=== PATIENT | male | born 1995 | race Caucasian/White ===

== ENCOUNTER 2017-02-06 10:04 | Emergency (ER) | payer SELFPAY ==
[~2017-02-06] VITALS: Ht 167.6 cm; Wt 62.6 kg
[2017-02-06] MEDS ORDERED: fentaNYL INJECTION 100 MCG/2 ML AMP IVP ONE (10:30)
[2017-02-06] MEDS ORDERED: BUSP5TAB59 (10:41)
[2017-02-06] MEDS ORDERED: BUSP10TA95 (10:41)
[2017-02-06] MEDS ORDERED: RISP1TAB94 (10:41)
--- NOTE | 2017-02-06 11:19 | Diagnostic Imaging Report ---
INDICATION: Injury to left hand AP, oblique, and lateral views of the left hand are obtained. Thre is an acute fracture of the first distal phalanx, extending to the interphalangeal joint. There is no significant displacement. There is no radiopaque foreign body. IMPRESSION: Vertically oriented acute fracture of first distal phalanx with extension to the interphalangeal joint. No radiopaque foreign body. Dictated by: Dictated on workstation # [id number]
--- NOTE | 2017-02-06 11:22 | ED Upper Extremity ---
General Chief Complaint: Laceration Stated Complaint: L THUMB LAC Nursing Triage Note: ARRIVED VIA POV WITH LAC TO LEFT THUMB. PT STATES HE WAS USING A POWER SAW AND IT SLIPPED. WORKS FOR [employer] IN [place]. Nursing Sepsis Screen: No Definite Risk History of Present Illness Time seen by provider: 11:05 Initial Comments Patient was using a table saw work today, it slipped and injured the volar surface of his left thumb. He is right-hand dominant. Denies any previous injuries to his left hand. Patient reports eating biscuits and gravy at 0700 and drinking pop prior to arrival Onset: just prior to arrival Pain/Injury Location: left thumb Method of Injury: incised Modifying Factors: Improves With Immobilization, Improves With Rest Allergies and Home Medications Allergies Coded Allergies: No Known Drug Allergies (Unverified , 02/06/17) Home Medications Buspirone HCl 10 Mg Tablet, #60 (Reported) Buspirone HCl 5 Mg Tablet, #60 (Reported) Cephalexin 500 Mg Capsule, 500 MG PO Q6H, #28 Ref 0 Prescribed by: ROBERTO GARCIA on 02/06/17 1233 Hydrocodone/Acetaminophen 1 Each Tablet, 1 EACH PO Q4H PRN for PAIN-MODERATE, # 20 Ref 0 Prescribed by: ROBERTO GARCIA on 02/06/17 1233 Risperidone 1 Mg Tablet, #60 (Reported) Constitutional: see HPI, other (history of schizophrenia) EENTM: no symptoms reported, see HPI Respiratory: no symptoms reported, see HPI Cardiovascular: no symptoms reported, see HPI Gastrointestinal: no symptoms reported, see HPI Genitourinary: no symptoms reported, see HPI Musculoskeletal: see HPI, joint pain (left thumb IP joint) Skin: see HPI, other (laceration left thumb) Psychiatric/Neurological: See HPI, Other (schizophrenia well controlled with medication) All Other Systems Reviewed Negative Unless Noted: Yes Past Jivbpwa-Whawyj-Cxtmfg Hx Patient Social History Alcohol Use: Denies Use Recreational Drug Use: Yes (marijuana approximately 2 weeks ago) Smoking Status: Never a Smoker Recent Foreign Travel: No Contact w/Someone Who Travel: No Recent Infectious Disease Expo: No Recent Hopitalizations: No Immunizations Up To Date Tetanus Booster (TDap): More than 5yrs Psychosocial Hx Psychiatric Problems: Yes Behavioral Health Disorders: Schizophrenia Reviewed Nursing Assessment Reviewed/Agree w Nursing PMH: Yes Physical Exam Vital Signs Vital Sign - Last 12Hours 02/06/17 10:10 Temp 98.0 Pulse 57 Resp 16 B/P (MAP) 105/68 Pulse Ox 98 O2 Delivery Room Air Capillary Refill : Less Than 3 Seconds General Appearance: WD/WN, no apparent distress HEENT: PERRL/EOMI, normal ENT inspection, TMs normal, pharynx normal Neck: non-tender, full range of motion, supple Cardiovascular: normal peripheral pulses, regular rate, rhythm Respiratory: chest non-tender, lungs clear, normal breath sounds, no respiratory distress, no accessory muscle use Gastrointestinal: normal bowel sounds, non tender, soft, no organomegaly, no pulsatile mass Wrist: Yes normal inspection, Yes non-tender, Yes no evidence of injury, Yes normal ROM Hand: Left, bone tenderness, laceration, limited ROM, soft tissue tenderness Neurologic/Psychiatric: no motor/sensory deficits, alert, normal mood/affect, oriented x 3 Skin: normal color, warm/dry Comments 5.5 cm laceration to left thumb on volar and ulnar side, deep with exposure of muscle and bones/fracture. Left thumb full extension and abduction with resisted power V/V. full flexion at MCP, unable to actively flex at IP joint, when passively flexed, unable to maintain the position. Cap refull < 2 sec, sensation intact left thumb. Laceration Repair : Wound Location: Upper Extremities (left thumb) Wound Length (cm): 5.5 Wound's Depth, Shape: into muscle, irregular, bone, sub Q Wound Explored: no foreign body removed Irrigated w/ Saline (ccs): 500 Betadine Prep?: Yes Anesthesia: 1% Lidocaine (10 mL's for digital block left thumb) Volume Anesthetic (ccs): 10 Wound Debrided: minimal Suture: Ethlion Suture Size: 4-0 Number of Sutures: 4 Sterile Dressing Applied?: Yes Progress Patient tolerated procedure well. Adaptic and nonadhesive dressing applied to left thumb with bulky 4 x 4s secured with Antony wrap. Progress/Results/Core Measures Results/Orders My Orders Orders - ROBERTO GARCIA [facility] [employer] Fentanyl Injection (Sublimaze Injection (02/06/17 11:40) Dipht,Pertuss(Acell),Tet Adult (Boostrix (02/06/17 11:44) Lidocaine 1% Injection (Xylocaine 1% Inj (02/06/17 11:52) Ceftriaxone Injection (Rocephin Injectio (02/06/17 12:30) Lidocaine 1% Injection (Xylocaine 1% Inj (02/06/17 12:30) Medications Given in ED Current Medications Medications Dose Ordered Sig/Brea Route Start Time Stop Time Status Last Admin Dose Admin Ceftriaxone Sodium 1,000 mg ONCE ONCE IM 02/06/17 12:30 02/06/17 12:31 DC 02/06/17 12:37 1,000 MG Fentanyl Citrate 50 mcg ONCE ONCE IVP 02/06/17 10:30 02/06/17 10:32 DC 02/06/17 10:37 50 MCG Lidocaine HCl 2.1 ml ONCE ONCE INJ 02/06/17 12:30 02/06/17 12:31 DC 02/06/17 12:20 2.1 ML Vital Signs/I&O Vital Sign - Last 12Hours 02/06/17 02/06/17 10:10 12:59 Temp 98.0 Pulse 57 78 Resp 16 16 B/P (MAP) 105/68 Pulse Ox 98 98 O2 Delivery Room Air Blood Pressure Mean: 80 Progress Note : Time: 11:05 Progress Note Initial evaluation completed, left thumb has been soaked in Hibiclens and sterile saline. He reports pain is controlled present time. X-rays were reviewed which show a compound, nondisplaced distal phalanx fracture. Will give a tetanus vaccine. Spoke with patient in detail about this injury as there is obvious damage to the tendon and bone, there are risks associated with his tobacco history and open fracture. Will call for orthopedic consult. 1130 patient reporting additional pain at this time, fentanyl 50 g. [address] spoke by phone with Dr. Rocha about the patient injury and x-ray. He recommended loose closure and follow-up with or therefore states to see Dr. Haynes for definitive treatment. 1200 discharge instructions discussed with the patient at length with the importance of following up with Dr. Rocha's office for referral to Dr. Haynes. He verbalized importance of this. Diagnostic Imaging Diagonstic Imaging: Xray Plain Films/CT/US/NM/MRI: hand (left) Comments NAME: ROLAND HOWE MED REC#: [id number] PT STATUS: REG ER : 1995 PHYSICIAN: KIMO SWEENEY MD ADMIT DATE: 02/06/17/ER Draft Date of Exam:02/06/17 HAND, LEFT, 3 VIEWS INDICATION: Injury to left hand AP, oblique, and lateral views of the left hand are obtained. Thre is an acute fracture of the first distal phalanx, extending to the interphalangeal joint. There is no significant displacement. There is no radiopaque foreign body. IMPRESSION: Vertically oriented acute fracture of first distal phalanx with extension to the interphalangeal joint. No radiopaque foreign body. Dictated on workstation # [id number] Dict: 02/06/17 1108 Trans: 02/06/17 1119 RHONDA [id number] Interpreted by: JULES HILLS MD Electronically signed by: Reviewed: Reviewed by Me, Reviewed/Discussed (with Dr. Rocha) Departure Impression Impression: Primary Impression: Fracture of thumb, left, open Qualified Codes: S62.525B - Nondisplaced fracture of distal phalanx of left thumb, initial encounter for open fracture Additional Impression: Laceration of left thumb Qualified Codes: S61.012A - Laceration without foreign body of left thumb without damage to nail, initial encounter Disposition: 01 HOME, SELF-CARE Condition: Improved Departure-Patient Inst. Decision time for Depature: 11:50 Referrals: NO,LOCAL PHYSICIAN (PCP/Family) Primary Care Physician Patient Instructions: Finger Fracture (DC), Laceration Repair With Stitches (DC ) Add. Discharge Instructions: Call Dr. Olson's office, for follow up with Dr. Haynes [phone] Keep dressing on left thumb at all times and keep dry. May cover with plastic bag for showering. Take antibiotic as ordered until follow-up with Dr. Haynes. Use pain medication as needed for pain. Return to emergency department for uncontrolled pain, new problems, or concerns. Ice to left thumb 20 minutes every 2 hours and elevate higher than the heart for increased pain, swelling or throbbing. All discharge instructions reviewed with patient and/or family. Voiced understanding. Scripts Hydrocodone/Acetaminophen (Hydrocodon-Acetaminoph 7.5-325) 1 Each Tablet 1 EACH PO Q4H Y for PAIN-MODERATE, #20 TAB 0 Refills Prov: ROBERTO GARCIA [facility] [employer] 02/06/17 Cephalexin (Keflex) 500 Mg Capsule 500 MG PO Q6H, #28 CAP 0 Refills Prov: ROBERTO GARCIA 02/06/17 Work/School Note: Work Release Form Date Seen in the Emergency Department: Feb 06, 2017 Return to Work: Feb 12, 2017 Restrictions: Need Release from Doctor Other Restrictions Listed Below: Unable to work until cleared by Dr. Haynes Copy Copies To 1: IDA ROCHA AMY ARNP Feb 06, 2017 11:22
[2017-02-06] MEDS ORDERED: fentaNYL INJECTION 100 MCG/2 ML AMP IVP STA (11:40)
[2017-02-06] MEDS ORDERED: TETANUS,DIPTH,PERTUSS P/F (BOOSTRIX) 0.5 ML VIAL IM STA (11:44)
[2017-02-06] MEDS ORDERED: LIDOCAINE 1% INJ 20 ML (XYLOCAINE) VIAL INJ STA (11:52)
[2017-02-06] MEDS ORDERED: cefTRIAXone 1 GM (ROCEPHIN) VIAL IM ONE (12:30)
[2017-02-06] MEDS ORDERED: LIDOCAINE 1% INJ 20 ML (XYLOCAINE) VIAL INJ ONE (12:30)
[2017-02-06] MEDS ORDERED: HYDR-3816 PO (12:33)
[2017-02-06] MEDS ORDERED: CEPH-507 PO (12:33)
[2017-02-06 12:59] VITALS: BP 100/48
== END 2017-02-06 12:59 | disposition home or self-care (01) ==
LOC: ER 10:10
DX: S61.012A Laceration without foreign body of left thumb without damage to nail, initial encounter (principal); W31.2XXA Contact with powered woodworking and forming machines, initial encounter; Y99.0 Civilian activity done for income or pay
CPT/HCPCS: 64450; 73130; 90715

== ENCOUNTER 2020-05-17 22:02 | Emergency (ER) | payer SELFPAY ==
[~2020-05-17] VITALS: Ht 170.2 cm; Wt 48.9 kg
[~2020-05-17 22:02] MED LIST: BUSP10TA95; BUSP5TAB59; CEPH-507 PO; HYDR-34 PO; RISP1TAB94
[2020-05-17] MEDS ORDERED: NS IV 1000 ML 1,000 ML IV STA (22:24)
[2020-05-17] MEDS ORDERED: VANCOMYCIN INJECTION 1,000 MG in NS (IVPB) 250 ML IV STA (22:24)
--- NOTE | 2020-05-17 22:27 | ED General ---
General Chief Complaint: Upper Extremity Stated Complaint: LT HAND INJ/PAIN Nursing Triage Note: pt punched window 24 hrs ago, dressing removed and 1 inch laceration noted to left lateral pinky finger, no bledding, moderate swelling noted with red streaking on forearm Nursing Sepsis Screen: No Definite Risk Source of Information: Patient History of Present Illness Date Seen by Provider: May 17, 2020 Time Seen by Provider: 22:06 Initial Comments 25 yo Male presents with his sister to the ED with complaints of injury to left hand from punching a window on Friday. He has a laceration to his left pinky finger and a dressing taped to his pinky and hand with yellow tape. He has redness and swelling to left hand with streaking up his left arm to his armpit. He is complaining of pain to the hand, forearm and upper arm. He has trouble moving his left pinky finger due to pain. There is pus draining from the open laceration on his pinky finger. He denies fever or chills. Allergies and Home Medications Allergies Coded Allergies: No Known Drug Allergies (Unverified , 02/06/17) Home Medications Amoxicillin/Potassium Clav 1 Each Tablet, 1 EACH PO BID Prescribed by: LIDA MASON on 05/17/20 2332 Cephalexin 500 Mg Capsule, 500 MG PO Q6H Prescribed by: ROBERTO GARCIA on 02/06/17 1233 Hydrocodone Bit/Acetaminophen 1 Each Tablet, 1 EACH PO Q4H PRN for PAIN-MODERATE Prescribed by: ROBERTO GARCIA on 02/06/17 1233 Patient Home Medication List Home Medication List Reviewed: Yes Review of Systems Review of Systems Constitutional: No chills, No fever EENTM: no symptoms reported Respiratory: no symptoms reported Cardiovascular: palpitations Gastrointestinal: no symptoms reported Genitourinary: no symptoms reported Musculoskeletal: see HPI Skin: see HPI Psychiatric/Neurological: Anxiety Past Bywkzqz-Rxijqp-Onpirj Hx Past Med/Social Hx: Reviewed Nursing Past Med/Soc Hx Patient Social History Alcohol Use: Occasionally Uses Recreational Drug Use: Yes Drug of Choice: marijuana Smoking Status: Current Everyday Smoker Type Used: Cigarettes 2nd Hand Smoke Exposure: No Recent Foreign Travel: No Contact w/Someone Who Travel: No Recent Infectious Disease Expo: No Recent Hopitalizations: No Physical Abuse: No Sexual Abuse: No Mistreated: No Fear: No Immunizations Up To Date Tetanus Booster (TDap): More than 5yrs Seasonal Allergies Seasonal Allergies: No Past Medical History Surgeries: No Respiratory: No Cardiac: No Neurological: No Genitourinary: No Gastrointestinal: No Musculoskeletal: No Endocrine: No HEENT: No Cancer: No Psychosocial: Yes Schizophrenia Integumentary: No Blood Disorders: No Adverse Reaction/Blood Tranf: No Physical Exam Vital Signs Vital Signs - First Documented 05/17/20 22:14 Temp 37.4 Pulse 102 Resp 20 B/P (MAP) 144/102 (116) Pulse Ox 96 O2 Delivery Room Air Capillary Refill : Less Than 3 Seconds Height, Weight, BMI Height: 5'6.00" Weight: 138lbs. oz. 62.613404nm; 16.00 BMI Method:Stated General Appearance: Anxious, Thin Respiratory: Chest Non Tender, Lungs Clear, Normal Breath Sounds Cardiovascular: Normal Peripheral Pulses, Tachycardia Extremity: Normal Capillary Refill, No Pedal Edema, Swelling (left hand with erythema and tenderness. laceration to left pinky finger with purulent drainage. red and warm streaking running up his veins to the axilla on left arm. Lymphadenopathy with tenderness on left arm) Neurologic/Psychiatric: Alert, Oriented x3 Skin: Warm/Dry, Erythema (with swelling and tenderness to left hand and pinky finger. redness streaking up his left arm to the axillary area with lymphadenopathy) Lymphatic: Axilla Node Tender (L) Focused Exam Lactate Level 05/17/20 22:25: Lactic Acid Level 1.20 Lactic Acid Level Laboratory Tests Test 05/17/20 22:25 Lactic Acid Level 1.20 MMOL/L (0.50-2.00) Procedures/Interventions Suture Size: 4-0 Progress/Results/Core Measures Suspected Sepsis Recent Fever Within 48 Hours: No Infection Criteria Present: None New/Unexplained Altered Menta: No Sepsis Screen: No Definite Risk SIRS Temperature: Pulse: 102 Respiratory Rate: 20 Laboratory Tests 05/17/20 22:25: White Blood Count 23.6H Blood Pressure 144 /102 Mean: 116 05/17/20 22:25: Lactic Acid Level 1.20 Laboratory Tests 05/17/20 22:25: Creatinine 0.74, Platelet Count 247, Total Bilirubin 1.1H Results/Orders Lab Results Laboratory Tests Test 05/17/20 22:25 Range/Units White Blood Count 23.6 H 4.3-11.0 10^3/uL Red Blood Count 4.89 4.35-5.85 10^6/uL Hemoglobin 15.6 13.3-17.7 G/DL Hematocrit 43 40-54 % Mean Corpuscular Volume 89 80-99 FL Mean Corpuscular Hemoglobin 32 25-34 PG Mean Corpuscular Hemoglobin Concent 36 32-36 G/DL Red Cell Distribution Width 12.0 10.0-14.5 % Platelet Count 247 130-400 10^3/uL Mean Platelet Volume 10.1 7.4-10.4 FL Neutrophils (%) (Auto) 85 H 42-75 % Lymphocytes (%) (Auto) 7 L 12-44 % Monocytes (%) (Auto) 8 0-12 % Eosinophils (%) (Auto) 0 0-10 % Basophils (%) (Auto) 0 0-10 % Neutrophils # (Auto) 19.9 H 1.8-7.8 X 10^3 Lymphocytes # (Auto) 1.5 1.0-4.0 X 10^3 Monocytes # (Auto) 1.9 H 0.0-1.0 X 10^3 Eosinophils # (Auto) 0.0 0.0-0.3 10^3/uL Basophils # (Auto) 0.1 0.0-0.1 10^3/uL Neutrophils % (Manual) 79 % Lymphocytes % (Manual) 10 % Monocytes % (Manual) 7 % Eosinophils % (Manual) 0 % Basophils % (Manual) 0 % Band Neutrophils 4 % Blood Morphology Comment NORMAL Sodium Level 134 L 135-145 MMOL/L Potassium Level 3.6 3.6-5.0 MMOL/L Chloride Level 96 L 98-107 MMOL/L Carbon Dioxide Level 20 L 21-32 MMOL/L Anion Gap 18 H 5-14 MMOL/L Blood Urea Nitrogen 13 7-18 MG/DL Creatinine 0.74 0.60-1.30 MG/DL Estimat Glomerular Filtration Rate > 60 BUN/Creatinine Ratio 18 Glucose Level 135 H 70-105 MG/DL Lactic Acid Level 1.20 0.50-2.00 MMOL/L Calcium Level 9.9 8.5-10.1 MG/DL Corrected Calcium 8.5-10.1 MG/DL Total Bilirubin 1.1 H 0.1-1.0 MG/DL Aspartate Amino Transf (AST/SGOT) 18 5-34 U/L Alanine Aminotransferase (ALT/SGPT) 11 0-55 U/L Alkaline Phosphatase 56 40-136 U/L Total Protein 8.0 6.4-8.2 GM/DL Albumin 5.0 H 3.2-4.5 GM/DL My Orders Orders - LIDA MASON MD Ed Iv/Invasive Line Start (05/17/20 22:21) Cbc With Automated Diff (05/17/20 22:21) Comprehensive Metabolic Panel (05/17/20 22:21) Blood Culture (05/17/20 22:21) Hand 3 View Left (05/17/20 22:21) Wound Culture (05/17/20 22:21) Wound Dressing-Ed (05/17/20 22:21) Lactic Acid Analyzer (05/17/20 22:21) Ns Iv 1000 Ml (Sodium Chloride 0.9%) (05/17/20 22:24) Vancomycin Injection (Vancomycin Injecti (05/17/20 22:24) Dipht,Pertuss(Acell),Tet Adult (Boostrix (05/17/20 22:30) Manual Differential (05/17/20 22:25) Vital Signs/I&O 05/17/20 05/17/20 22:14 22:38 Temp 37.4 37.4 Pulse 102 102 Resp 20 20 B/P (MAP) 144/102 (116) 144/102 (116) Pulse Ox 96 96 O2 Delivery Room Air Capillary Refill : Less Than 3 Seconds Blood Pressure Mean: 116 Progress Note #1: Progress Note check labs and xray of left hand. Obtain labs with cultures and lactic acid. with his tachycardia order 2 L IVF bolus to treat for possible sepsis and vancomycin since he has open draining wound with streaking up his arm. He does have hardware in his thumb from a previous open fracture to left hand 3 years ago. Progress Note #2: Time: 22:47 Progress Note On my review of 3 views of Left hand xrays he has no fractures but has soft tissue swelling. No definite foreign bodies showing up on the area of laceration to the left pinky finger. His white blood cell count is greatly elevated at 23.6 thousand with a left shift. Awaiting lactic acid and chemistry panel. He did have an update to his tetanus in 2017 when he had the open fracture and laceration to his left thumb so the tetanus update for tonight was not given. Progress Note #3: Time: 23:14 Progress Note Lactic acid not elevated. Pt states he is willing to stay in the hospital for antibiotics but wants to talk with his sister. I spoke with his sister Melania and updated her as well. Since he has no PCP I spoke with Dr. Aggarwal, the information systems operator provider for Hospitalist service. She accepted him for admit and wanted to add Zosyn to the Vancomycin. Progress Note #4: Time: 23:29 Progress Note After pt had agreed to admit and said he just wanted to talk with his sister he actually just took the time to tell his sister to come pick him up because he was ready to leave. When I went back in the room and reviewed with him again th at he had agreed to be admitted and stay in the hospital in [place], he now is refusing and states he will be fine and that he does not need any more antibiotics. He says he feels better already. I told him that if he does not get antibiotics he could from the infection in his blood and streaking up his arm into his armpit but he states he does not feel that will happen. He states he understands what I am telling him but he does not feel like that will happen. He still refuses to stay and repeatedly asks for his IV out so he can leave to see his sister. Even speaking with his sister again she was not able to talk him into being admitted. Diagnostic Imaging Diagonstic Imaging: Xray Plain Films/CT/US/NM/MRI: hand Comments On my review of the 3 views of his left hand xrays he had no definite fracture and no definite foreign body seen in area of laceration to the left pinky finger. he had soft tissue swelling to left hand. Pin seen in left thumb from prior open fracture from 2017 Departure Impression Primary Impression: Left against medical advice Additional Impressions: Laceration of left little finger w/o foreign body w/o damage to nail Qualified Codes: S61.217A - Laceration without foreign body of left little finger without damage to nail, initial encounter Acute lymphangitis of left upper extremity Lymphadenopathy, axillary Laceration of finger with infection Qualified Codes: S61.219A - Laceration without foreign body of unspecified finger without damage to nail, initial encounter; L08.9 - Local infection of the skin and subcutaneous tissue, unspecified Cellulitis and abscess of hand Disposition: AGAINST MEDICAL ADVICE Condition: Against Medical Advice Departure-Patient Inst. Decision time for Depature: 23:24 Referrals: NO,LOCAL PHYSICIAN (PCP/Family) Primary Care Physician Patient Instructions: Cellulitis (Skin Infection), Adult (DC), Laceration Infection (DC), Leaving Against Medical Advice, Lymphadenitis (DC) Add. Discharge Instructions: You are leaving against medical advice and the wound infection can worsen and spread through your blood and you could from this infection. You need to be on antibiotics to treat this and ideally you should be in the hospital with IV antibiotics to treat this to get it under control and then you could be placed on antibiotics by mouth once you are doing better with the IV antibiotics. You could try going to the clinic or urgent care or return to the ER for IM or Intramuscular injections of antibiotics each day for the next few days along with taking oral antibiotics to see if that helps, but if it keeps worsening then you will need admission to the hospital All discharge instructions reviewed with patient and/or family. Voiced understanding. Scripts Amoxicillin/Potassium Clav (Amox Tr-K Clv 875-125 mg Tab) 1 Each Tablet 1 EACH PO BID for cellulitis for 10 Days, #20 TAB 0 Refills Prov: LIDA MASON MD 05/17/20 Images Full Body/Extremities Full 1 - Cellulitis, Swelling, Tenderness, Other-See Progress Note Progress redness, swelling and tenderness with lymphadenopathy streaking from laceration with purulent discharge on his left pinky finger up his hand, forearm, elbow, upper arm and into axilla and shoulder area. LIDA MASON MD May 17, 2020 22:27
[2020-05-17] MEDS ORDERED: TETANUS,DIPTH,PERTUSS P/F (BOOSTRIX) 0.5 ML VIAL IM ONE (22:30)
[2020-05-17 22:38] VITALS: BP 144/102
[2020-05-17 22:43] LABS: BASOPHILS # (AUTO) 0.1 10^3/uL (0.0-0.1); BASOPHILS % (AUTO) 0 % (0-10); EOSINOPHILS % (AUTO) 0 % (0-10); HEMATOCRIT 43 % (40-54); HEMOGLOBIN 15.6 G/DL (13.3-17.7); LYMPHOCYTES # (AUTO) 1.5 X 10^3 (1.0-4.0); LYMPHOCYTES % (AUTO) 7 % (12-44); MEAN CORPUSCULAR HEMOGLOBIN 32 PG (25-34); MEAN CORPUSCULAR HGB CONC 36 G/DL (32-36); MEAN CORPUSCULAR VOLUME 89 FL (80-99); MEAN PLATELET VOLUME 10.1 FL (7.4-10.4); MONOCYTES # (AUTO) 1.9 X 10^3 (0.0-1.0); MONOCYTES % (AUTO) 8 % (0-12); NEUTROPHILS # (AUTO) 19.9 X 10^3 (1.8-7.8); NEUTROPHILS % (AUTO) 85 % (42-75); PLATELET COUNT 247 10^3/uL (130-400); WHITE BLOOD COUNT 23.6 10^3/uL (4.3-11.0)
--- NOTE | 2020-05-17 22:45 | NUR ---
pt with tetanus shot 3 years ago, pt refused.
[2020-05-17 23:04] LABS: ALANINE AMINOTRANSFERASE 11 U/L (0-55); ALKALINE PHOSPHATASE 56 U/L (40-136); BILIRUBIN,TOTAL 1.1 MG/DL (0.1-1.0); BUN/CREATININE RATIO 18; CALCIUM 9.9 MG/DL (8.5-10.1); CARBON DIOXIDE 20 MMOL/L (21-32); CHLORIDE 96 MMOL/L (98-107); CREATININE SERUM 0.74 MG/DL (0.60-1.30); GFR ESTIMATED > 60; GLUCOSE 135 MG/DL (70-105); POTASSIUM 3.6 MMOL/L (3.6-5.0); SODIUM 134 MMOL/L (135-145)
[2020-05-17 23:09] LABS: BAND NEUTROPHILS 4 %; BASOPHILS % (MANUAL) 0 %; EOSINOPHILS % (MANUAL) 0 %; LYMPHOCYTES % (MANUAL) 10 %; MONOCYTES % (MANUAL) 7 %; NEUTROPHILS % (MANUAL) 79 %; RBC MORPH NORMAL
--- NOTE | 2020-05-17 23:31 | NUR ---
pt refused admission and iv antibiotics, sister notified, she will come to get pt.
[2020-05-17] MEDS ORDERED: AMOX1TAB12 PO (23:32)
--- NOTE | 2020-05-18 06:12 | Diagnostic Imaging Report ---
INDICATION: Left hand trauma pain, swelling. COMPARISON: 02/06/2017. FINDINGS: 3 views of left hand demonstrate orthopedic screw in the base of the distal phalanx 1st digit. Soft tissue swelling is noted involving the 5th digit. There is no obvious fracture or dislocation. No unexpected radiopaque foreign body seen. IMPRESSION: No acute fracture or deformity. Dictated by: Dictated on workstation # [id number]
== END 2020-05-17 23:38 | disposition left against medical advice (07) ==
LOC: EDUNIT# 22:02 → ER FS 22:05
DX: S61.217A Laceration without foreign body of left little finger without damage to nail, initial encounter (principal); L03.124 Acute lymphangitis of left upper limb; L03.114 Cellulitis of left upper limb; F17.210 Nicotine dependence, cigarettes, uncomplicated; W22.8XXA Striking against or struck by other objects, initial encounter
CPT/HCPCS: 36415; 73130; 80053; 83605; 85007; 85027; 87040; 87070; 87205